=== PATIENT | male | born 1990 | race Caucasian/White ===

== ENCOUNTER 2023-12-12 11:40 | Outpatient (CLI) | payer MEDICAID, SELFPAY | END 2023-12-12 11:41 | disposition home or self-care (01) | PROVIDERS: PCP Nurse Practitioner Family; Visit Provider Otolaryngology | DX: R42 Dizziness and giddiness (principal) | CPT/HCPCS: 84443; 86039; 86431; 86618 ==

== ENCOUNTER 2024-01-16 07:59 | Outpatient (CLI) | payer MEDICAID, SELFPAY ==
--- NOTE | 2024-01-16 08:15 | MR_ITS ---
Patient: LANIE DOMINGO Facility:?[facility] RIS Patient ID:?[id number] Site Patient ID:?[id number]. Site :?[id number] Study:?MRI-Head W/O IAC'S-01/16/2024 9:13:35 AM Ordering Physician:?SIOMARA LE Final Report: INDICATION: Dizziness. TECHNIQUE: Routine sagittal T1 axial FLAIR T2 and diffusion weighted images of the brain. Thin section axial T1 and high-resolution T2 weighted images centering on the internal auditory canals. The patient did not consent for contrast at this time. COMPARISON: CT scan dated 04/24/2022. FINDINGS: The lateral 3rd and 4th ventricles are normal in size and shape there is no evidence of acute ischemic infarction there no areas of diffusion restriction. There is no mass effect no evidence of intracranial hemorrhage. There are no periventricular white matter lesions suggest demyelinating disease. The brainstem and cerebellum appear normal the cerebellopontine angle cisterns are symmetric and unremarkable. No lesion is seen within the internal auditory canals as viewed on the high-resolution T2 weighted images. The orbits, sella turcica, paranasal sinuses and skullbase are unremarkable as visualized. IMPRESSION: 1. Negative MRI examination. No evidence of acute infarction intracranial hemorrhage mass or cerebral demyelination. 2. No focal posterior fossa lesion is demonstrated. Dictated by Foreign Pulido MD @ 01/17/2024 8:45:51 AM Signed by:?Foreign Pulido MD @01/17/2024 8:45:51 AM (Electronic Signature)
== END 2024-01-16 08:00 | disposition home or self-care (01) ==
LOC: MRI 08:00
PROVIDERS: PCP Nurse Practitioner Family; Visit Provider Otolaryngology
DX: R42 Dizziness and giddiness (principal)
CPT/HCPCS: 70551

== ENCOUNTER 2024-06-09 12:57 | Outpatient (CLI) | payer OTHER, SELFPAY ==
--- NOTE | 2024-06-09 13:00 | CRLHL7_ITS ---
For Patients: As a result of the Century Cures Act, medical imaging exams and procedure reports are released immediately into your electronic medical record. You may view this report before your referring provider. If you have questions, please contact your health care provider. Indication : Eustachian tube dysfunction. Dizziness. Ear pressure. Technique : Performed without IV contrast. Comparison : None Findings : The middle ear clefts are well aerated, including the oval window and round window/sinus tympani areas. The ossicular chains and tympanic membranes have a normal CT appearance. The mastoids are well developed and clear, including the central tracts and peripheral air cells. The inner ear structures and IACs are unremarkable. The external canals are negative. The included nasopharynx is unremarkable. Tiny subcortical cysts are noted in both mandibular condylar heads. The temporomandibular joints are otherwise unremarkable. The visualized portions of the brain, orbits and upper soft tissue neck are grossly negative. Impression : 1. No temporal bone pathology is identified. 2. Tiny subcortical cysts are noted in the heads of both mandibular condyles. Please note that all CT scans at this facility use dose modulation, iterative reconstruction, and/or weight-based dosing when appropriate to reduce radiation dose to as low as reasonably achievable. Dictated by Chandan Larson MD @ 06/10/2024 11:30:04 AM (Electronically Signed)
== END 2024-06-09 12:58 | disposition home or self-care (01) ==
LOC: CT 13:00
PROVIDERS: PCP Nurse Practitioner Family; Visit Provider Otolaryngology
DX: R42 Dizziness and giddiness (principal); H69.93 Unspecified Eustachian tube disorder, bilateral; K09.9 Cyst of oral region, unspecified
CPT/HCPCS: 70480